=== PATIENT | female | born 1960 | race Caucasian/White ===

== ENCOUNTER 2017-03-24 00:26 | Emergency (ER) | payer SELFPAY ==
[~2017-03-24] VITALS: Ht 162.6 cm; Wt 94.6 kg
[~2017-03-24 00:26] MED LIST: FLEXERIL PO; ULTRAM50 M1 PO; ZESTRIL10 M1 PO
[2017-03-24 01:32] LABS: HEMATOCRIT 44.9 % (37.0-47.0); HEMOGLOBIN 14.7 g/dl (12.0-16.0); IMMATURE GRANULOCYTES 0.4 % (0.0-1.0); MEAN CELL VOLUME 89.8 fL CALC (80.0-100.0); MEAN CORPUSCULAR HGB 29.4 pG CALC (26.0-32.0); MEAN CORPUSCULAR HGB CONC 32.7 g/L CALC (32.0-36.0); NEUT# 7.63 thou/uL (2.00-7.15); RED CELL DISTRI WIDTH 13.3 % (11.5-15.5)
[2017-03-24 01:32] LABS: URINE BILIRUBIN - DIPSTICK NEGATIVE (NEGATIVE); URINE BLOOD DIPSTICK SMALL (NEGATIVE); URINE CLARITY CLEAR; URINE COLOR YELLOW; URINE GLUCOSE - DIPSTICK NEGATIVE (NEGATIVE); URINE KETONE NEGATIVE (NEGATIVE); URINE LEUK ESTERASE NEGATIVE (NEGATIVE); URINE NITRITE - DIPSTICK NEGATIVE (Negative); URINE PROTEIN - DIPSTICK NEGATIVE (NEG-TRACE); URINE UROBILINOGEN - DIPSTICK 0.2 E.U./dL (0.2)
[2017-03-24 01:49] LABS: URINE SQUAMOUS EPITHELIAL CELL RARE EPI/hpf (0-FEW); URINE WBC 0-2 WBC/hpf (0-5)
[2017-03-24 01:58] LABS: ALBUMIN 4.2 g/dL (3.2-5.0); ALKALINE PHOSPHATASE 96 u/l (38-126); AMYLASE 46 u/l (30-110); ANION GAP 12 (6-22 (CALC)); BILIRUBIN, TOTAL 0.5 mg/dL (0.0-1.4); BUN 18 mg/dL (7-17); BUN/CREATININE RATIO 29 (12-20 (CALC)); CALCIUM 9.8 mg/dL (8.4-10.2); CARBON DIOXIDE 26 mmol/l (22-30); CHLORIDE 106 mmol/l (95-108); CREATININE 0.6 mg/dL (0.5-1.0); GFR > 60 ML/MIN (>=60 (CALC)); GFR FOR AFR.AMER. > 60 ML/MIN (>=60 (CALC)); GLUCOSE 102 mg/dL (65-105); LIPASE 99 u/l (23-300); POTASSIUM 4.4 mmol/l (3.5-5.1); SGOT/AST 18 u/l (14-36); SGPT/ALT 23 u/l (9-52); SODIUM 140 mmol/l (137-146); TOTAL PROTEIN 7.3 g/dL (6.3-8.2)
[2017-03-24] MEDS ORDERED: SIMVASTATIN40 MG PO (01:59)
[2017-03-24] MEDS ORDERED: EQ OMEPRAZOLE20 MG PO ×2 (03:09→11:46)
[2017-03-24] MEDS ORDERED: CLARITHROMYC500 M2 PO ×2 (03:09→11:46)
[2017-03-24] MEDS ORDERED: AMPICILLIN500 MG PO ×2 (03:09→11:46)
[2017-03-24 03:16] VITALS: BP 152/84
== END 2017-03-24 03:18 | disposition home or self-care (01) | DRG 392 ==
LOC: ED 00:26
PROVIDERS: Emergency Medicine
DX: R10.13 Epigastric pain (principal); K27.9 Peptic ulcer, site unspecified, unspecified as acute or chronic, without hemorrhage or perforation; R10.11 Right upper quadrant pain; I10 Essential (primary) hypertension; F17.210 Nicotine dependence, cigarettes, uncomplicated
CPT/HCPCS: Q9967; S0164

== ENCOUNTER 2017-03-30 13:27 | Emergency (ER) | payer SELFPAY ==
[~2017-03-30] VITALS: Ht 10.2 cm; Wt 75.0 kg
[~2017-03-30 13:27] MED LIST changes: +AMPICILLIN500 MG PO; +CLARITHROMYC500 M2 PO; +EQ OMEPRAZOLE20 MG PO; +SIMVASTATIN40 MG PO
[2017-03-30 14:39] LABS: HEMATOCRIT 43.3 % (37.0-47.0); HEMOGLOBIN 14.5 g/dl (12.0-16.0); IMMATURE GRANULOCYTES 0.5 % (0.0-1.0); MEAN CELL VOLUME 87.8 fL CALC (80.0-100.0); MEAN CORPUSCULAR HGB 29.4 pG CALC (26.0-32.0); MEAN CORPUSCULAR HGB CONC 33.5 g/L CALC (32.0-36.0); NEUT# 6.39 thou/uL (2.00-7.15); RED BLOOD COUNT 4.93 mill/uL (4.20-5.60); RED CELL DISTRI WIDTH 13.1 % (11.5-15.5)
[2017-03-30 14:55] LABS: ALBUMIN 4.1 g/dL (3.2-5.0); ALKALINE PHOSPHATASE 260 u/l (38-126); AMYLASE < 30 u/l (30-110); ANION GAP 15 (6-22 (CALC)); BILIRUBIN, TOTAL 2.9 mg/dL (0.0-1.4); BUN 14 mg/dL (7-17); BUN/CREATININE RATIO 24 (12-20 (CALC)); CALCIUM 9.7 mg/dL (8.4-10.2); CARBON DIOXIDE 26 mmol/l (22-30); CHLORIDE 101 mmol/l (95-108); CREATININE 0.6 mg/dL (0.5-1.0); GFR > 60 ML/MIN (>=60 (CALC)); GFR FOR AFR.AMER. > 60 ML/MIN (>=60 (CALC)); GLUCOSE 129 mg/dL (65-105); LIPASE 135 u/l (23-300); POTASSIUM 4.5 mmol/l (3.5-5.1); SODIUM 138 mmol/l (137-146); TOTAL PROTEIN 7.3 g/dL (6.3-8.2)
[2017-03-30 15:05] LABS: SGOT/AST 895 u/l (14-36); SGPT/ALT 572 u/l (9-52)
[2017-03-30 19:00] VITALS: BP 171/85
== END 2017-03-30 19:42 | disposition short-term general hospital (02) | DRG 392 ==
LOC: ED 13:27
PROVIDERS: Emergency Medicine
DX: R10.11 Right upper quadrant pain (principal); R82.2 Biliuria; K81.9 Cholecystitis, unspecified; R11.2 Nausea with vomiting, unspecified; R74.8 Abnormal levels of other serum enzymes
CPT/HCPCS: Q9967; S0164

== ENCOUNTER 2018-07-07 03:35 | Emergency (ER) | payer SELFPAY ==
[~2018-07-07] VITALS: Ht 162.6 cm; Wt 83.6 kg
[2018-07-07 04:24] LABS: URINE BILIRUBIN - DIPSTICK NEGATIVE (NEGATIVE); URINE BLOOD DIPSTICK SMALL (NEGATIVE); URINE CLARITY SL CLOUDY; URINE COLOR YELLOW; URINE GLUCOSE - DIPSTICK NEGATIVE (NEGATIVE); URINE KETONE NEGATIVE (NEGATIVE); URINE LEUK ESTERASE NEGATIVE (NEGATIVE); URINE NITRITE - DIPSTICK NEGATIVE (Negative); URINE PH 5.5 (4.5-8.0); URINE PROTEIN - DIPSTICK NEGATIVE (NEG-TRACE); URINE SPECIFIC GRAVITY 1.025; URINE UROBILINOGEN - DIPSTICK 0.2 E.U./dL (0.2)
[2018-07-07 04:24] LABS: HEMATOCRIT 47.1 % (37.0-47.0); HEMOGLOBIN 15.2 g/dl (12.0-16.0); IMMATURE GRANULOCYTES 0.6 % (0.0-5.0); MEAN CELL VOLUME 92.2 fL CALC (80.0-100.0); MEAN CORPUSCULAR HGB 29.7 pG CALC (26.0-32.0); MEAN CORPUSCULAR HGB CONC 32.3 g/L CALC (32.0-36.0); NEUT# 6.22 thou/uL (2.00-7.15); RED BLOOD COUNT 5.11 mill/uL (4.20-5.60); RED CELL DISTRI WIDTH 13.9 % (11.5-15.5)
[2018-07-07 04:33] LABS: URINE BACTERIA FEW hpf; URINE MUCUS MODERATE hpf (NONE-FEW); URINE SQUAMOUS EPITHELIAL CELL MODERATE EPI/hpf (0-FEW)
[2018-07-07 04:40] LABS: ALBUMIN 3.9 g/dL (3.2-5.0); ALKALINE PHOSPHATASE 84 u/l (38-126); ANION GAP 10 (6-22 (CALC)); BILIRUBIN, TOTAL 0.5 mg/dL (0.0-1.4); BUN 8 mg/dL (7-17); BUN/CREATININE RATIO 13 (12-20 (CALC)); CARBON DIOXIDE 31 mmol/l (22-30); CHLORIDE 105 mmol/l (95-108); CREATININE 0.6 mg/dL (0.5-1.0); GFR > 60 ML/MIN (>=60 (CALC)); GFR FOR AFR.AMER. > 60 ML/MIN (>=60 (CALC)); POTASSIUM 4.1 mmol/l (3.5-5.1); SGOT/AST 17 u/l (14-36); SGPT/ALT 22 u/l (9-52); SODIUM 142 mmol/l (137-146); TOTAL PROTEIN 6.9 g/dL (6.3-8.2)
[2018-07-07] MEDS ORDERED: VALTREX1 GM PO (05:56)
[2018-07-07] MEDS ORDERED: LORTAB 5/3255 MG PO (05:56)
[2018-07-07] MEDS ORDERED: IBUPROFEN600 MG PO (05:56)
[2018-07-07 06:12] VITALS: BP 183/82
== END 2018-07-07 06:12 | disposition home or self-care (01) | DRG 596 ==
LOC: ED 03:35
PROVIDERS: Family Medicine
DX: B02.9 Zoster without complications (principal); F17.210 Nicotine dependence, cigarettes, uncomplicated

== ENCOUNTER 2024-12-22 06:45 | Emergency (ER) | payer SELFPAY ==
[~2024-12-22] VITALS: Ht 162.6 cm; Wt 85.0 kg
[~2024-12-22 06:45] MED LIST changes: +IBUPROFEN600 MG PO; +LORTAB 5/3255 MG PO; +VALTREX1 GM PO
[2024-12-22 06:56] VITALS: BP 158/104
[2024-12-22 07:00] VITALS: BP 134/98
[2024-12-22] MEDS ORDERED: AMOX/K CLAV875 M1 PO (07:13)
[2024-12-22] MEDS ORDERED: METRONIDAZOLE500 MG PO (07:13)
[2024-12-22] MEDS ORDERED: KETOROLAC TROMETHAMINE 30 MG/ML SDV IM ONE (07:15)
[2024-12-22 07:18] VITALS: BP 134/98
== END 2024-12-22 07:20 | disposition home or self-care (01) | DRG 159 ==
LOC: ED 06:45
DX: K08.89 Other specified disorders of teeth and supporting structures (principal); I10 Essential (primary) hypertension; F17.200 Nicotine dependence, unspecified, uncomplicated